=== PATIENT | female | born 1985 | race Caucasian/White ===

== ENCOUNTER 2016-10-15 16:07 | Inpatient (IN) | payer BC, OTHER ==
[~2016-10-15] VITALS: Ht 167.6 cm; Wt 72.0 kg
[~2016-10-15 16:07] MED LIST: BCPILLS PO; IMTUNK
[2016-10-15] MEDS ORDERED: NALOXONE HCL 0.4 MG/1 ML VIAL/CARP IV PRN (16:15)
[2016-10-15] MEDS ORDERED: LORAZEPAM INJ 1 MG in SYRINGE 0 ML IV PRN (16:15)
[2016-10-15] MEDS: BCP'S~ORDER AWAITING ACTION SCH ×2 (16:45→23:41)
--- NOTE | 2016-10-15 16:48 | HISTORY & PHYSICAL EXAMINATION ---
DATE OF ADMISSION: 10/15/2016 HISTORY OF PRESENT ILLNESS: The patient presented to our office a few weeks ago with an acute onset of lower back pain radiating down the right leg. It started when she was working out and setting some weights on the floor. Pain involves the right lower extremity, involving the buttock, lateral thigh, anterior gomez with numbness in her foot. She feels she is dragging her right leg. Standing and sitting reproduce her symptoms. She is most comfortable lying flat with her legs elevated. She went to urgent care where they gave her oral steroids and pain medication. Denies bowel or bladder dysfunction. PAST MEDICAL HISTORY: Significant for migraines, mitral valve prolapse. PAST SURGICAL HISTORY: Significant for breast augmentation and Lasik eye surgery. ALLERGIES: None listed. MEDICATIONS: Include control pills and Imitrex as needed for migraines. FAMILY HISTORY: Significant for hyperlipidemia with her father. SOCIAL HISTORY: She is . Denies alcohol. Denies tobacco. REVIEW OF SYSTEMS: Significant for back pain, right leg pain and weakness. PHYSICAL EXAMINATION: HEENT: Speech appropriate. CARDIOPULMONARY: No gross abnormalities. ABDOMEN: Soft, nontender. GENITOURINARY: Deferred. NEUROLOGIC: Cranial nerves II-XII grossly intact. MUSCULOSKELETAL: She ambulates with an antalgic gait to the right. She is quite uncomfortable. She has a right-sided foot drop. Strength is intact to the left leg. Positive tension sign on the right. 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 PLAN: In light of her continued right-sided radiculopathy and foot drop, we have discussed pursuing directly admitting her for urgent lumbar decompression and fusion L5-S1. Risks, benefits, pros, cons, alternatives outlined in detail. She is in agreement with the above-mentioned plan.
[2016-10-15 19:30] VITALS: BP 121/79; PULSE 78; TEMP 36.8; O2SAT 99
[2016-10-15 19:36] LABS: BASO % 0.2 %; BASO ABS # 0.02 K/uL (0-0.2); COMPLETE YES; EOS % 1.7 %; HEMATOCRIT 37.7 % (37-47); IG% 0.2 %; LYMPH % 34.4 %; LYMPH ABS # 2.76 K/uL (1.2-3.4); MEAN CELL VOLUME 90.6 fL (80-100); MEAN CORPUSCULAR HEMOGLOBIN 31.3 pg (25-34); MEAN CORPUSCULAR HGB CONC 34.5 g/dl (32-36); MEAN PLATELET VOLUME 10.7 fL (7.4-10.4); MONO % 7.6 %; NEUT % 55.9 %; PLATELET COUNT 267 K/uL (130-400); RED BLOOD COUNT 4.16 M/uL (4.2-5.4); WHITE BLOOD COUNT 8.03 K/uL (4.8-10.8)
[2016-10-15 20:08] LABS: ALT/SGPT 21 U/L (12-78); AST/SGOT 15 U/L (15-37); BLOOD UREA NITROGEN 14 mg/dl (7-18); BUN/CREATININE RATIO 19.9 (10-20); CALCIUM 8.7 mg/dl (8.5-10.1); CARBON DIOXIDE 26 mmol/L (21-32); CHLORIDE 105 mmol/L (98-107); CREATININE 0.72 mg/dl (0.60-1.20); GLUCOSE 78 mg/dl (70-99); POTASSIUM 3.9 mmol/L (3.5-5.1); SODIUM 141 mmol/L (136-145)
[2016-10-15 20:11] LABS: ALB/GLOB RATIO 1.3 (0.9-2); ALKALINE PHOSPHATASE 78 U/L (45-117)
[2016-10-15 20:30] LABS: PREG INTERNAL NEGATIVE QC NEG CLEAR BACKGROUND; PREG INTERNAL POSITIVE QC POS CONTROL LINE
[2016-10-15] MEDS: SODIUM CHLORIDE 0.9% 1000ML 1,000 ML IV SCH (20:44)
[2016-10-15 21:57] VITALS: BP 121/79; PULSE 78; TEMP 36.8
[2016-10-15 22:02] VITALS: BP 121/79; PULSE 78; TEMP 36.8; O2SAT 99; Ht 167.6 cm; Wt 72.0 kg
[2016-10-15] MEDS: HYDROmorphone HCL 0.5MG/ML 50 ML CASSETTE IV PRN ×2 (22:43→23:06)
[2016-10-15] MEDS: LACTATED RINGER'S 1000ML 1,000 ML IV SCH (22:50)
[2016-10-15 23:00] VITALS: BP 113/77; PULSE 98; TEMP 36.8; O2SAT 96
[2016-10-16] VITALS (13 sets, daily range): BP systolic 103–132; BP diastolic 62–84; PULSE 73–97; TEMP 36.3–36.7; O2SAT 95–100
[2016-10-16 01:51] LABS: URINE APPEARANCE CLEAR (CLEAR); URINE BILIRUBIN NEG (NEG); URINE COLOR YELLOW; URINE NITRITE NEG (NEG); URINE SPECIFIC GRAVITY 1.011 (1.000-1.030); UROBILINOGEN NEG (NEG)
[2016-10-16 01:54] LABS: MANUAL MICROSCOPIC REQUIRED? NO; REVIEW REQ? NO
[2016-10-16] MEDS: LACTATED RINGER'S 1000ML 1,000 ML IV SCH ×5 (05:38→22:07)
[2016-10-16] MEDS ORDERED: CEFAZOLIN IV 1,000 MG in DEXTROSE 5% 50ML 50 ML IV SCH (06:00)
[2016-10-16] MEDS ORDERED: CEFAZOLIN 1000MG/55 ML D5W IV SCH (06:00)
[2016-10-16] MEDS: HYDROmorphone HCL 0.5MG/ML 50 ML CASSETTE IV PRN ×3 (06:55→22:58)
--- NOTE | 2016-10-16 07:30 | History & Physical Bridge Note ---
H&P Re-Evaluation Bridge Note: I have examined the patient, reviewed the History & Physical and in the interval since the performance of the History & Physical I have noted the following changes of clinical significance: No changes noted
[2016-10-16] MEDS: BCP'S~ORDER AWAITING ACTION SCH ×3 (08:00→23:59)
[2016-10-16] MEDS: ONDANSETRON INJ 2 MG/ML 2 ML VIAL IV PRN ×2 (12:28→18:19)
[2016-10-16] MEDS ORDERED: BACITRACIN 50000 UNIT VIAL ONE (12:36)
[2016-10-16] MEDS ORDERED: BUPIVACAINE/EPINEPHRINE 0.5% MPF 1:200,000 30 ML VIAL ONE (12:36)
[2016-10-16] MEDS ORDERED: FENTANYL CITRATE INJ 50 MCG/1 ML 2 ML VIAL ONE ×3 (13:06→14:53)
[2016-10-16] MEDS ORDERED: MIDAZOLAM HCL 1 MG/ML 2ML VIAL ONE (13:06)
[2016-10-16] MEDS ORDERED: LACTATED RINGER'S 1000ML 1,000 ML IV PRN (13:35)
[2016-10-16] MEDS ORDERED: HYDROmorphone INJ 2 MG/ML SYR/VIAL ONE (13:38)
[2016-10-16] MEDS ORDERED: HYDROmorphone INJ 1 MG/ML SYR IV PRN (13:45)
[2016-10-16] MEDS ORDERED: DiphenhydrAMINE HCL 50 MG/ML VIAL IV PRN (13:45)
[2016-10-16] MEDS ORDERED: ONDANSETRON INJ 2 MG/ML 2 ML VIAL IV PRN ×2 (13:45→15:00)
[2016-10-16] MEDS ORDERED: METOCLOPRAMIDE HCL INJ 5 MG/ML 2 ML VIAL IV PRN ×2 (13:45→15:00)
[2016-10-16] MEDS ORDERED: METOCLOPRAMIDE HCL INJ 5 MG/ML 2 ML VIAL ONE (13:53)
[2016-10-16] MEDS ORDERED: GLYCOPYRROLATE INJ 0.2 MG/ML VIAL ONE (13:53)
[2016-10-16] MEDS ORDERED: DEXAMETHASONE SOD INJ 4 MG/ML VIAL ONE (13:53)
[2016-10-16] MEDS ORDERED: ESMOLOL HCL 10 MG/ML 10 ML VIAL ONE (13:53)
[2016-10-16] MEDS ORDERED: LIDOCAINE HCL 2% 2 ML VIAL (20MG/ML) ONE (13:53)
[2016-10-16] MEDS ORDERED: ONDANSETRON INJ 2 MG/ML 2 ML VIAL ONE (13:53)
[2016-10-16] MEDS ORDERED: RANITIDINE HCL 25 MG/ML INJ ONE (13:53)
[2016-10-16] MEDS ORDERED: NEOSTIGMINE METHYLSULFATE 1 MG/ML 10ML VIAL ONE (13:53)
[2016-10-16] MEDS ORDERED: PROPOFOL IV EMULSION 10 MG/ML 20 ML VIAL IV ONE (13:53)
[2016-10-16] MEDS ORDERED: SODIUM CHLORIDE 0.9% 1000ML 1,000 ML IV SCH (14:57)
--- NOTE | 2016-10-16 14:57 | [facility] Post Operative Brief Note ---
Immediate Operative Summary Operative Date Oct 16, 2016. Pre-Operative Diagnosis Herniated Nucleus Pulposus with neurological decline Post-Operative Diagnosis Same as preoperitive diagnosis Procedure(s) Performed L5-S1 Posterior Spinal decompression and Fusion, Transforaminal Lumbar Interbody Fusion with Instrumentation and application of Fibrinet Surgeon Dr Ware Chocolate Molder Surgeon(s) Alessandra Fontana PA-C Estimated Blood Loss 70 Findings hnp/spondy Specimens None per surgeon
[2016-10-16] MEDS ORDERED: LORAZEPAM INJ 0.5 MG in SYRINGE 0 ML IV PRN (15:00)
[2016-10-16] MEDS ORDERED: DO NOT ADMINISTER FLU VACCINE PRN ×3 (15:00)
[2016-10-16] MEDS ORDERED: DO NOT ADMINISTER PNEUMOCOCCAL VACCINE PRN ×2 (15:00)
[2016-10-16] MEDS ORDERED: PROMETHAZINE HCL INJ 12.5 MG in SODIUM CHLORIDE 0.9% 50ML 50 ML IV PRN (15:00)
[2016-10-16] MEDS ORDERED: HYDROmorphone HCL 0.5MG/ML 50 ML CASSETTE IV PRN (15:00)
[2016-10-16] MEDS ORDERED: FAMOTIDINE 20 MG TAB PO PRN (15:00)
[2016-10-16] MEDS ORDERED: LORAZEPAM 0.5 MG TAB PO PRN (15:00)
[2016-10-16] MEDS ORDERED: SOD PHOSPHATE/SOD BIPHOSPHATE ENEMA 132 ML BTL PR PRN (15:00)
[2016-10-16] MEDS ORDERED: MAGNESIUM HYDROXIDE SUSP 30 ML UDC PO PRN (15:00)
[2016-10-16] MEDS ORDERED: ACETAMINOPHEN IV 100 ML IV PRN (15:00)
[2016-10-16] MEDS ORDERED: NALOXONE HCL 0.4 MG/1 ML VIAL/CARP IV PRN ×2 (15:00)
[2016-10-16] MEDS ORDERED: hydrOXYzine HCL 25 MG TAB PO PRN (15:00)
[2016-10-16] MEDS ORDERED: ACETAMINOPHEN 500 MG TAB PO PRN (15:00)
[2016-10-16] MEDS ORDERED: BISACODYL 10 MG SUPP PR PRN (15:00)
[2016-10-16] MEDS ORDERED: ALUMINUM/MAGNESIUM SUSP 30 ML UDC PO PRN (15:00)
[2016-10-16] MEDS ORDERED: FLOSEAL HEMOSTATIC MATRIX 10ML TOP ONE (15:13)
--- NOTE | 2016-10-16 15:18 | DIAGNOSTIC IMAGING REPORT ---
INTRAOPERATIVE LUMBAR SPINE 2 VIEWS CLINICAL HISTORY: L5-S1 DECOMP/FUSION/INTERBODY COMPARISON STUDY: No previous studies for comparison. FINDINGS: 21 seconds of fluoroscopic time was utilized. There are postsurgical changes of an L5-S1 discectomy and interbody fusion. There is a grade 1 spondylolisthesis of L5 on S1. There is posterior hardware fixation with screws and rods. IMPRESSION: Postsurgical changes of an L5-S1 discectomy and fusion. Electronically signed by: Urbano Saul M.D. 10/16/2016 3:16 PM Dictated Date/Time: 10/16/2016 3:16 PM
--- NOTE | 2016-10-16 15:28 | OPERATIVE REPORT ---
DATE OF OPERATION: 10/15/2016 PREOPERATIVE DIAGNOSES: Spinal stenosis, spondylolisthesis, herniated nucleus pulposus L5-S1. POSTOPERATIVE DIAGNOSIS: Same. PROCEDURE PERFORMED: 1. Lumbar decompression, medial facetectomy and foraminotomy L5-S1. 2. Posterior spinal fusion L5-S1. 3. Placement posterior instrumentation using Orthros rods and screws, L5-S1. 4. Interbody fusion L5-S1. 5. Placement of PEEK cage 12 x 22 mm at L5-S1. 6. Placement of locally harvested morcellized autograft in the posterior gutters. 7. Placement of FiberNet and OsteoStrux in the interbody space and posterior lateral gutters. SURGEON: Dr. Ross Ware. PAY STATION DEPARTMENT MANAGER: Alessandra Fontana PA-C. Due to the complex nature of the procedure, the entire surgery was performed with the assistant chief engineer of Alessandra Fontana PA-C. The electrician's assistant, under direct supervision, was involved in the actual performance of all aspects of the surgical procedure including hemostasis, tissue retraction and incision, instrument management, patient positioning, and wound closure. ANESTHESIA: General. DISPOSITION: The patient awakened and taken to PACU in stable condition. HISTORY OF PATIENT'S PROBLEMS: This is a 31-year-old female who presents with above-mentioned diagnosis. After failing an extensive course of nonoperative care, elected to undergo the above-mentioned procedure. Risks, benefits, pros, cons, and alternatives were outlined in detail preoperatively. OPERATION AND FINDINGS: PROCEDURE: The patient was met with preoperatively, case discussed and all questions were addressed. At that point the patient was taken back to operative suite and after undergoing successful general intubation by the department of anesthesia was placed in prone position on Edwardo table atop Devaughn frame. All bony prominences were well padded and the eyes were inspected to ensure there was no external pressure placed upon them. At this point, lumbar spine was prepped and draped in normal sterile fashion. Sharp dissection with the assistance of Bovie cautery performed down to and exposing the lamina and transverse processes of L5 and the sacral ala bilaterally. Obvious pars defect as well as spina bifida occulta appreciated. A complete laminectomy was performed. I identified a massive disc herniation that migrated cephalad from the L5-S1 level causing significant compression of the L5 nerve root. This was removed in its entirety. Pedicle screws were then placed in L5 and S1 bilaterally levels bilaterally with the assistance of fluoroscopy and appropriate size sanjay provisionally placed. Through a transforaminal approach on the right, a complete discectomy of L5-S1 was performed, endplates curetted to subcortical bleeding bone and a 12 x 22 mm PEEK cage filled with OsteoStrux and FiberNet tapped into position. The rods were then compressed, locked into final position bilaterally and transverse processes of L5 and the sacral ala were burred to subcortical bleeding bone. Remaining OsteoStrux, FiberNet, locally harvested morcellized autograft was placed in the posterior gutters. A 7 flat ARIA drain was inserted. Incision was closed with 1-0 Vicryl in the fascia, 2-0 Vicryl subcutaneously, 4-0 Monocryl for final skin closure. Steri-Strips and sterile dressing was placed. The patient was awakened and taken to PACU in stable condition. I attest to the content of the Intraoperative Record and any orders documented therein. Any exceptio ns are noted below.
[2016-10-16] MEDS: FENTANYL CITRATE INJ 50 MCG/1 ML 2 ML VIAL IV PRN ×2 (15:35→15:40)
--- NOTE | 2016-10-16 16:08 | Anesthesiology Progress Note ---
Anesthesia Post Op Note Date & Time Oct 16, 2016 at 16:09 Vital Signs Pain Intensity: 4 Vital Signs Past 12 Hours Date Time Temp Pulse Resp B/P Pulse Ox O2 Delivery O2 Flow Rate FiO2 10/16/16 16:05 36.9 10/16/16 15:56 87 25 100 10/16/16 15:56 87 25 10/16/16 15:55 120/60 10/16/16 15:51 82 21 10/16/16 15:51 82 21 100 10/16/16 15:50 122/63 10/16/16 15:46 79 14 10/16/16 15:46 79 14 100 10/16/16 15:45 126/66 10/16/16 15:41 69 26 100 10/16/16 15:41 69 26 10/16/16 15:40 75 20 125/75 100 10/16/16 15:40 77 20 10/16/16 15:35 96 17 10/16/16 15:35 96 17 131/69 100 10/16/16 15:30 88 23 129/66 100 10/16/16 15:30 88 23 10/16/16 15:25 85 21 123/65 100 10/16/16 15:25 85 21 10/16/16 15:20 36.8 103 16 127/67 100 Mask 10 10/16/16 15:20 23 10/16/16 15:20 113 23 127/67 10/16/16 12:22 36.7 86 14 122/78 96 Room Air 10/16/16 08:05 36.7 77 16 122/81 100 Room Air 10/16/16 07:30 Room Air Notes Mental Status: alert / awake / arousable, participated in evaluation Pt Amnestic to Procedure: Yes Nausea / Vomiting: adequately controlled Pain: adequately controlled Airway Patency, RR, SpO2: stable & adequate BP & HR: stable & adequate Hydration State: stable & adequate Anesthetic Complications: no major complications apparent
[2016-10-16] MEDS: SODIUM CHLORIDE 0.9% 1000ML 1,000 ML IV SCH (16:30)
[2016-10-16] MEDS: DEXAMETHASONE INJ 6 MG in SYRINGE 0 ML IV SCH ×2 (18:19→23:59)
[2016-10-16] MEDS: CEFAZOLIN IV 1,000 MG in DEXTROSE 5% 50ML 50 ML IV SCH (19:55)
[2016-10-16] MEDS: DOCUSATE SODIUM/SENNA 50/8.6MG TAB PO SCH (22:06)
[2016-10-17 04:01] VITALS: BP 123/76; PULSE 81; TEMP 36.7; O2SAT 96
[2016-10-17] MEDS: LACTATED RINGER'S 1000ML 1,000 ML IV SCH (04:35)
[2016-10-17] MEDS: CEFAZOLIN IV 1,000 MG in DEXTROSE 5% 50ML 50 ML IV SCH (04:35)
[2016-10-17] MEDS ORDERED: DC PCA ONE (06:00)
[2016-10-17] MEDS ORDERED: NURSING VERBAL MED ORDER ONE (06:15)
[2016-10-17 06:57] LABS: BASO % 0.1 %; BASO ABS # 0.01 K/uL (0-0.2); COMPLETE YES; HEMATOCRIT 36.2 % (37-47); IG% 0.3 %; LYMPH % 6.1 %; LYMPH ABS # 0.91 K/uL (1.2-3.4); MEAN CELL VOLUME 92.3 fL (80-100); MEAN CORPUSCULAR HEMOGLOBIN 31.6 pg (25-34); MEAN CORPUSCULAR HGB CONC 34.3 g/dl (32-36); MONO % 6.8 %; NEUT % 86.7 %; PLATELET COUNT 253 K/uL (130-400); RED BLOOD COUNT 3.92 M/uL (4.2-5.4); WHITE BLOOD COUNT 14.81 K/uL (4.8-10.8)
[2016-10-17 07:26] LABS: BUN/CREATININE RATIO 10.2 (10-20); CALCIUM 8.6 mg/dl (8.5-10.1); CREATININE 0.68 mg/dl (0.60-1.20)
[2016-10-17] MEDS ORDERED: RXC5 PO (07:46)
--- NOTE | 2016-10-17 07:47 | Discharge Instructions ---
Discharge Instructions Admission Reason for Admission: Hnp With Neurological Decline Discharge Discharge Diagnosis / Problem: stenosis Discharge Goals Goal(s): Improve function Activity Recommendations Activity Limitations: per Instructions/Follow-up section . Instructions / Follow-Up Instructions / Follow-Up ACTIVITY RECOMMENDATIONS: SELF CARE INSTRUCTIONS AFTER THORACIC/LUMBAR FUSIONS 1. You may walk to your tolerance. It is good exercise for your legs and back. Expect some back and intermittent leg aches and pains. 2. You may perform "counter-top" level activities (make a sandwich, paula with a project, etc.). 3. No bending or lifting of more than 10 pounds or back twisting of any nature (roll like a log when turning in bed). 4. You may ride in a car for 20-30 minutes at a time. No driving until after your first visit with your doctor. 5. Frequent changes of position and restricting sitting to 30 minutes at a time will help limit the amount of back spasms and stiffness you may experience. 6. You may discontinue the use of ambulatory aids (cane, crutches, etc.) once your strength and confidence allow. 7. You may wood milling machine hand the shower and let water strike your incision when you arrive home at least once daily. Do not take a tub bath, sit in a hot tub or go into a swimming pool until after your first recheck in the office. SPECIAL CARE INSTRUCTIONS: VERY IMPORTANT TO READ AND REVIEW A. Your surgical incision has been closed with a cosmetic suture under the skin that will dissolve in about 6 weeks. In 14 days, you can use a pair of clean scissors and cut the suture that is left outside of the skin at the ends of your incision. 1. The small skin tapes can be removed 7 days after surgery if they have not fallen off by that point. 2. You may keep the wound open to air as much as possible to promote healing after post-op day number 5 unless told otherwise by your doctor. 3. If you think the wound looks like it is becoming infected (redness or worsening drainage) and/or you are experiencing fever, chill or worsening back pain and muscle spasms, contact the office so that we may evaluate you as soon as possible. B. Complications are uncommon, but please contact us if you have any signs or symptoms of: 1. wound infection (fever higher than 102.5 degrees F, redness, separation of wound, drainage, or increasing pain from the incision) 2. blood clots in legs (pain, swelling, redness and warmth in legs) 3. urinary tract infection (fever higher than 102.5 degrees F, burning upon urination or increased frequency of urination) 4. nerve problems (inability to walk on your toes or heels, numbness, loss of bowel or bladder control) 5. any other symptoms that concern you C. Please call the office at if you have any concerns or questions about your operation or recovery. D. No smoking! Smoking drastically decreases the chance of a solid fusion. E. Do not take any anti-inflammatory medications (Indocin, Advil, Motrin, Aspirin, Naprosyn, etc.) as these may inhibit the chance of a solid fusion. Tylenol is okay to take for pain. MANAGING PAIN AFTER SPINAL SURGERY 1. Narcotic medication is intended for short-term use and will be provided for surgical pain. Surgical pain usually lasts for a period of 4-6 weeks. Narcotic medication includes Percocet, Vicodin, Darvocet, Tylenol #3 or Lortab. 2. Longer-term pain is more appropriately treated with non-narcotic medication such as Tylenol ES. 3. Muscle spasm is not appropriately treated with narcotics. Muscle relaxers such as Soma, Flexeril or Skelaxin can be used along with Tylenol ES. 4. Remember that we all live with some "aches and pains". This is not unusual or uncommon after an injury or as we get older. a. Back pain is expected and may include muscle spasms for 4 to 6 weeks after surgery. The pain should gradually improve. If the pain worsens for no apparent reason, please contact the office. b. Intermittent leg pain may also be experienced and should not be concerned about unless it worsens for no apparent reason. If so, please contact the office. 5. We will provide appropriate medication within the normal guidelines of their prescribed use. We will also be very cautious and aware of potential abuse and extended duration of patients' medication needs. a. Pain medications are for your comfort and to assist with sleep and rest so that the tissue can heal. They are not provided in order to return to normal activity and should not be used through the day. To do so or worsening pain at night can result from ongoing tissue damage and development of tolerance to the prescribed medicine. 6. Please allow 2-3 days to process refills. Prescriptions will not be mailed but must be picked up at the office. FOLLOW UP VISIT: Keep your scheduled follow-up appointment. Any questions, please call the office at . Current Hospital Diet Patient's current hospital diet: Regular Diet Discharge Diet Recommended Diet: Regular Diet Procedures Procedures Performed: Transforaminal lumbar interbody fusion L5 - S1 Pending Studies Studies pending at discharge: no Medical Emergencies . Who to Call and When: Medical Emergencies: If at any time you feel your situation is an emergency, please call 911 immediately. . Non-Emergent Contact Non-Emergency issues call your: Primary Care Provider . "Provider Documentation" section prepared by Ross Ware. VTE Core Measure Inpt VTE Proph given/why not?: Thelma Poole, SCD's
[2016-10-17] MEDS: OXYCODONE HCL IR 5 MG TAB (IMMEDIATE RELEASE) PO PRN ×3 (07:51→20:05)
[2016-10-17] MEDS: DEXAMETHASONE INJ 6 MG in SYRINGE 0 ML IV SCH (07:52)
[2016-10-17] MEDS: BCP'S~ORDER AWAITING ACTION SCH ×3 (08:00→23:19)
[2016-10-17 08:21] VITALS: BP 121/78; PULSE 87; TEMP 36.7; O2SAT 100
[2016-10-17] MEDS: HYDROmorphone INJ 0.5 MG/0.5 ML SYR IV PRN ×3 (08:58→21:52)
[2016-10-17 15:13] VITALS: BP 122/76; PULSE 79; TEMP 37.3; O2SAT 99
--- NOTE | 2016-10-17 17:13 | PROGRESS NOTE ---
DATE: 10/17/2016 HISTORY OF PRESENT ILLNESS: Postop day 1. Back pain controlled. Leg pain improved. Vital signs stable. Temperature 37.3. ARIA drained 110 mL. Hematocrit this a.m. 36.2. PHYSICAL EXAMINATION: The patient is ambulating halls. She has good and rather improved strength to right lower extremity in dorsiflexion. ASSESSMENT: Status post lumbar decompression and fusion. PLAN: At this time, we will continue physical therapy, monitor ARIA output, and anticipate home tomorrow or the next day.
[2016-10-17] MEDS: DOCUSATE SODIUM/SENNA 50/8.6MG TAB PO SCH (21:50)
[2016-10-17 23:19] VITALS: BP 124/75; PULSE 66; TEMP 36.6; O2SAT 96
[2016-10-18] MEDS: HYDROmorphone INJ 0.5 MG/0.5 ML SYR IV PRN ×2 (03:25→08:05)
[2016-10-18] MEDS: POLYETHYLENE (MIRALAX) 17 GM PACK PO SCH ×2 (05:31→12:02)
[2016-10-18 07:00] VITALS: BP 117/79; PULSE 91; TEMP 36.7; O2SAT 99
[2016-10-18] MEDS: BCP'S~ORDER AWAITING ACTION SCH (08:00)
[2016-10-18] MEDS ORDERED: KETOROLAC TROMETHAMINE 30 MG/ML VIAL IV STA (10:43)
[2016-10-18] MEDS ORDERED: KETOROLAC TROMETHAMINE 30 MG/ML VIAL IV PRN (10:45)
--- NOTE | 2016-10-18 11:22 | DISCHARGE SUMMARY ---
PRINCIPAL DIAGNOSES: Herniated nucleus pulposus, spinal stenosis, spondylolisthesis L5-S1. HOSPITAL COURSE FOLLOWS: On October 15, the patient was admitted for pain control and on October 16, underwent lumbar decompression and fusion L5-S1 tolerated this well and taken to the orthopedic floor postoperatively. Postop day #1, strength is improving. Leg pain improved. Postop day #2. Continued to do well. ARIA drain decreased appropriately. Subsequently discharged home. Discharge orders and instructions found on the chart for further review.
[2016-10-18 12:54] VITALS: BP 124/75; PULSE 66; TEMP 36.6; O2SAT 96
== END 2016-10-18 15:00 | disposition home or self-care (01) | DRG 460 ==
LOC: C.MSW 18:42
PROVIDERS: ADMIT Orthopaedic Surgery Orthopaedic Surgery of the Spine; ATTEND Orthopaedic Surgery Orthopaedic Surgery of the Spine
PROC: 0SG3071 Fusion of Lumbosacral Joint with Autologous Tissue Substitute, Posterior Approach, Posterior Column, Open Approach (ICD-10-PCS; principal; 2016-10-15)
PROC: 3E0U0GB Introduction of Recombinant Bone Morphogenetic Protein into Joints, Open Approach (ICD-10-PCS; principal; 2016-10-15)
PROC: 0ST40ZZ Resection of Lumbosacral Disc, Open Approach (ICD-10-PCS; principal; 2016-10-15)
PROC: 0SG30AJ Fusion of Lumbosacral Joint with Interbody Fusion Device, Posterior Approach, Anterior Column, Open Approach (ICD-10-PCS; principal; 2016-10-15)
DX: M51.17 Intervertebral disc disorders with radiculopathy, lumbosacral region (principal); M43.17 Spondylolisthesis, lumbosacral region; M51.86 Other intervertebral disc disorders, lumbar region; M21.371 Foot drop, right foot; I34.1 Nonrheumatic mitral (valve) prolapse; G43.909 Migraine, unspecified, not intractable, without status migrainosus; Z79.3 Long term (current) use of hormonal contraceptives; Z79.899 Other long term (current) drug therapy

== ENCOUNTER → 2017-01-10 | Outpatient (CLI) | payer BC ==
[~2017-01-10] MED LIST changes: +RXC5 PO
[2017-01-10 15:02] LABS: URINE APPEARANCE CLEAR (CLEAR); URINE BILIRUBIN NEG (NEG); URINE COLOR YELLOW; URINE NITRITE NEG (NEG); URINE SPECIFIC GRAVITY 1.009 (1.000-1.030); UROBILINOGEN NEG (NEG)
[2017-01-10 15:09] LABS: MANUAL MICROSCOPIC REQUIRED? NO; REVIEW REQ? NO
== END | disposition home or self-care (01) ==
LOC: C.LABSPEC 13:29
PROVIDERS: ATTEND Obstetrics & Gynecology
DX: Z34.90 Encounter for supervision of normal pregnancy, unspecified, unspecified trimester (principal)

== ENCOUNTER → 2017-01-17 | Outpatient (CLI) | payer BC ==
[2017-01-17 10:10] LABS: BASO % 0.2 %; BASO ABS # 0.01 K/uL (0-0.2); COMPLETE YES; EOS % 1.1 %; HEMATOCRIT 37.9 % (37-47); IG% 0.3 %; LYMPH % 27.7 %; LYMPH ABS # 1.81 K/uL (1.2-3.4); MEAN CELL VOLUME 93.1 fL (80-100); MEAN CORPUSCULAR HEMOGLOBIN 31.7 pg (25-34); MEAN PLATELET VOLUME 11.2 fL (7.4-10.4); MONO % 10.2 %; NEUT % 60.5 %; PLATELET COUNT 244 K/uL (130-400); RED BLOOD COUNT 4.07 M/uL (4.2-5.4); WHITE BLOOD COUNT 6.54 K/uL (4.8-10.8)
[2017-01-20 08:29] LABS: CHLAMYDIA TRACH RNA*** NOT DETECTED (NOT DETECTED); GC (NEIS GONORRHOEAE)RNA** NOT DETECTED (NOT DETECTED)
== END | disposition home or self-care (01) ==
LOC: C.LAB1850 09:03
PROVIDERS: ATTEND Obstetrics & Gynecology
DX: Z34.90 Encounter for supervision of normal pregnancy, unspecified, unspecified trimester (principal)

== ENCOUNTER → 2017-03-28 | Outpatient (CLI) | payer BC ==
[2017-04-02 14:12] LABS: AFP CONCENTRATION 48.5 NG/ML; AFP MULTIPLE OF MEDIAN 1.28; AFPTS GESTATIONAL AGE 18.1 WEEKS; AFPTS INSULIN DEP DIABETIC? YES; AFPTS MATERNAL WT 158 LBS; ALPHA-FETOPROTEIN RACE CAUCASIAN=W; HISTORY OF NTD NO; REPEAT SAMPLE? NO
== END | disposition home or self-care (01) ==
LOC: C.LAB1850 12:00
PROVIDERS: ATTEND Obstetrics & Gynecology
DX: Z34.02 Encounter for supervision of normal first pregnancy, second trimester (principal)

== ENCOUNTER → 2017-06-09 | Outpatient (CLI) | payer BC ==
[2017-06-09 13:05] LABS: HEMATOCRIT 34.4 % (37-47)
[2017-06-09 14:26] LABS: URINE APPEARANCE CLEAR (CLEAR); URINE BILIRUBIN NEG (NEG); URINE COLOR YELLOW; URINE EPITHELIAL CELL AUTO 20-30 /lpf (0-5); URINE NITRITE NEG (NEG); URINE PH 6.5 (4.5-7.5); URINE SPECIFIC GRAVITY 1.015 (1.000-1.030); UROBILINOGEN NEG (NEG)
[2017-06-09 14:27] LABS: MANUAL MICROSCOPIC REQUIRED? NO; REVIEW REQ? NO
== END | disposition home or self-care (01) ==
LOC: C.LAB1850 12:13
PROVIDERS: ATTEND Obstetrics & Gynecology
DX: Z34.02 Encounter for supervision of normal first pregnancy, second trimester (principal)

== ENCOUNTER → 2017-08-08 | Outpatient (CLI) | payer BC | END | disposition home or self-care (01) | LOC: C.LABSPEC 10:59 | PROVIDERS: ATTEND Obstetrics & Gynecology | DX: Z34.03 Encounter for supervision of normal first pregnancy, third trimester (principal) ==

== ENCOUNTER 2017-08-31 00:51 | Inpatient (IN) | payer BC, OTHER ==
[~2017-08-31] VITALS: Ht 167.6 cm; Wt 77.1 kg
[2017-08-31 01:10] VITALS: Ht 167.6 cm; Wt 77.1 kg
[2017-08-31] MEDS ORDERED: CETI10TA84 PO (01:10)
[2017-08-31] MEDS ORDERED: PRENTAB26 PO (01:10)
[2017-08-31] MEDS ORDERED: BUTA1CAP20 (01:10)
[2017-08-31] MEDS ORDERED: BUPIVACAINE 0.25% 30 ML VIAL ONE (01:23)
[2017-08-31] MEDS ORDERED: EpHEDrine SULFATE INJ 50 MG/ML AMP ONE (01:23)
[2017-08-31] MEDS ORDERED: FENTANYL 2MCG/ML ROPIV 1.25MG/ML 100ML BAG EPI ONE (01:24)
[2017-08-31] MEDS ORDERED: FENTANYL CITRATE INJ 50 MCG/1 ML 2 ML VIAL ONE (01:24)
[2017-08-31] MEDS ORDERED: PENICILLIN G POTASSIUM IV 3 MU in DEXTROSE 5% 100ML 100 ML IV PRN (01:30)
[2017-08-31] MEDS ORDERED: PENICILLIN G POTASSIUM IV 6 MU in DEXTROSE 5% 250ML 250 ML IV ONE (01:30)
[2017-08-31 01:39] LABS: HEMATOCRIT 36.3 % (37-47); HEMOGLOBIN 12.5 g/dL (12.0-16.0); MEAN CELL VOLUME 89.9 fL (80-100); MEAN CORPUSCULAR HEMOGLOBIN 30.9 pg (25-34); MEAN CORPUSCULAR HGB CONC 34.4 g/dl (32-36); MEAN PLATELET VOLUME 10.6 fL (7.4-10.4); PLATELET COUNT 216 K/uL (130-400); RED CELL DISTRIBUTION WIDTH CV 13.7 % (11.5-14.5); RED CELL DISTRIBUTION WIDTH SD 44.8 fL (36.4-46.3); WHITE BLOOD COUNT 13.71 K/uL (4.8-10.8)
[2017-08-31] MEDS: LACTATED RINGER'S 1000ML 1,000 ML IV PRN ×2 (01:53→02:23)
[2017-08-31] MEDS: LACTATED RINGER'S 1000ML 1,000 ML IV SCH ×2 (01:53→06:11)
[2017-08-31] MEDS ORDERED: LACTATED RINGER'S 1000ML 500 ML IV PRN (02:57)
[2017-08-31] MEDS ORDERED: NALOXONE HCL INJ 1 MG in SODIUM CHLORIDE 0.9% 1000ML 1,000 ML IV PRN (02:57)
[2017-08-31] MEDS ORDERED: ONDANSETRON INJ 2 MG/ML 2 ML VIAL IV PRN (03:00)
[2017-08-31] MEDS ORDERED: EpHEDrine SULFATE INJ 50 MG/ML AMP IV PRN (03:00)
[2017-08-31] MEDS ORDERED: NALOXONE HCL INJ 0.4 MG/1 ML VIAL/CARP IV PRN (03:00)
[2017-08-31] MEDS ORDERED: NALBUPHINE HCL INJ 10 MG/ML AMP IV PRN (03:00)
[2017-08-31] MEDS ORDERED: FENTANYL 2MCG/ML ROPIV 1.25MG/ML 100ML BAG EPI PRN (03:00)
[2017-08-31] MEDS ORDERED: DiphenhydrAMINE HCL 50 MG/ML VIAL IV PRN (03:00)
[2017-08-31] MEDS ORDERED: OXYTOCIN 30 UNITS/500ML NSS IV ONE (06:32)
[2017-08-31] MEDS ORDERED: SUPERCREAM 0.870 % 15GM JAR EXT PRN (08:15)
[2017-08-31] MEDS ORDERED: LANOLIN OINT EXT PRN (08:15)
[2017-08-31] MEDS ORDERED: OXYTOCIN 30 UNITS/500ML NSS IV PRN (08:15)
[2017-08-31] MEDS ORDERED: ACETAMINOPHEN 325 MG TAB PO PRN (08:15)
[2017-08-31] MEDS ORDERED: OXYCODONE/ACETAMINOPHEN 5-325 TAB PO PRN (08:15)
[2017-08-31] MEDS ORDERED: BENZOCAINE 20% AER SPR 82.5 GM CAN EXT PRN (08:15)
[2017-08-31] MEDS: IBUPROFEN 600 MG TAB PO PRN ×3 (09:41→22:38)
--- NOTE | 2017-08-31 10:01 | Anesthesia Procedure Note ---
Anesthesia Epidural Removal Nt Date & Time Aug 31, 2017 at 10:00 Vital Signs Pain Intensity: 3.0 Notes Mental Status: alert / awake / arousable, participated in evaluation Nausea / Vomiting: adequately controlled Pain: adequately controlled Airway Patency, RR, SpO2: stable & adequate BP & HR: stable & adequate Hydration State: stable & adequate Neuraxial Anesthesia: was administered, sensory block is resolving Anesthetic Complications: no major complications apparent, pt satisfied with anesthetic care Epidural: removed without complications, with tip intact
--- NOTE | 2017-08-31 11:02 | DELIVERY SUMMARY ---
DATE OF OPERATION: 08/31/2017 The patient is a 32-year-old 1, para 0 white female, EDC of 08/27/2017, who presented in active labor. She presented at 5 cm dilated with membranes intact. GBS is positive. She received 2 doses of penicillin prior to delivery. She received effective epidural analgesia. She ruptured membranes spontaneously after 8 cm dilated and then, pushed effectively over an intact perineum for delivery of a viable male infant. Mouth and nasopharynx were suctioned on the perineum. The rest of the was delivered easily and placed on mother's abdomen for further attention and stimulation. Bilateral first-degree labial lacerations were repaired with 3-0 chromic in the usual fashion. Estimated blood loss was 500 mL. Post- bleeding was controlled with dilute Pitocin and fundal massage. Mother and infant were doing well after delivery. I attest to the content of the Intraoperative Record and any orders documented therein. Any exception s are noted below.
[2017-08-31 12:00] VITALS: BP 107/72; PULSE 111; TEMP 36.7
[2017-08-31 15:25] VITALS: BP 100/65; PULSE 88; TEMP 36.4; O2SAT 97
[2017-08-31] MEDS: DOCUSATE SODIUM 100 MG CAP PO SCH (20:01)
[2017-08-31 20:05] VITALS: BP 104/72; PULSE 84; TEMP 36.6; O2SAT 97
[2017-08-31 23:15] VITALS: BP 110/71; PULSE 79; TEMP 36.5; O2SAT 99
[2017-09-01 03:55] VITALS: BP 106/68; PULSE 71; TEMP 36.7; O2SAT 98
--- NOTE | 2017-09-01 07:22 | Progress Note ---
Subjective Sep 01, 2017. Subjective conversation w/ patient, physical exam Ambulation: ambulating normally Voiding: no voiding problems Passing Gas: Yes Lochia: Small Feeding Type: Breast Feeding Review of Systems Constitutional: No fever, No chills, No sweats, No weight loss, No weakness, No fatigue, No problem reported Breast: No see HPI, No breast lump, No change in shape, No nipple discharge, No breast pain, No problem reported Female : No see HPI, No dysuria, No urinary frequency, No hematuria, No incontinence, No abnormal vaginal bleeding, No vaginal discharge, No problem reported Objective Vital Signs Date Time Temp Pulse Resp B/P (MAP) Pulse Ox O2 Delivery O2 Flow Rate FiO2 09/01/17 03:55 36.7 71 106/68 (81) 98 Room Air 08/31/17 23:15 99 Room Air 08/31/17 23:15 36.5 79 110/71 (84) 99 Room Air 08/31/17 20:05 36.6 84 18 104/72 (83) 97 Room Air 08/31/17 15:25 36.4 88 18 100/65 (77) 97 Room Air 08/31/17 15:25 97 Room Air 08/31/17 12:00 Room Air 08/31/17 12:00 36.7 111 20 107/72 (84) Room Air Physical Exam General Appearance: WELL-APPEARING, NO APPARENT DISTRESS Abdomen: non tender, soft Fundus: Firm, Non-Tender, Relation to Umbilicus (1 below U) Extremities: no calf tenderness Laboratory Results Last 24 Hours Test 09/01/17 04:44 Assessment and Plan Day#: 1 Continue Routine Care: stable course GBS(+) continue current care plan
[2017-09-01 07:58] VITALS: BP 109/74; PULSE 77; TEMP 36.7
[2017-09-01 07:59] LABS: HEMATOCRIT 32.1 % (37-47); HEMOGLOBIN 10.7 g/dL (12.0-16.0)
[2017-09-01] MEDS: DOCUSATE SODIUM 100 MG CAP PO SCH ×2 (08:15→20:17)
[2017-09-01] MEDS: PRENATAL VITAMIN TAB PO SCH (08:16)
[2017-09-01] MEDS: IBUPROFEN 600 MG TAB PO PRN ×2 (08:16→16:21)
[2017-09-01 16:25] VITALS: BP 109/72; PULSE 73; TEMP 36.7
[2017-09-01] MEDS ORDERED: BISACODYL 5 MG TABEC PO SCH (20:00)
[2017-09-02 00:30] VITALS: BP 115/76; PULSE 71; TEMP 36.5
[2017-09-02] MEDS: IBUPROFEN 600 MG TAB PO PRN ×3 (00:35→12:04)
[2017-09-02] MEDS: PRENATAL VITAMIN TAB PO SCH (07:46)
[2017-09-02] MEDS: DOCUSATE SODIUM 100 MG CAP PO SCH (07:46)
[2017-09-02 08:30] VITALS: BP 120/79; PULSE 72; TEMP 36.6; O2SAT 98; O2SAT 99
--- NOTE | 2017-09-02 08:40 | Progress Note ---
Subjective Sep 02, 2017. Subjective conversation w/ patient, physical exam Ambulation: ambulating normally Voiding: no voiding problems Passing Gas: Yes Diet Tolerance: Regular Diet Lochia: Moderate Feeding Type: Breast Feeding Pain: controlled Review of Systems Constitutional: No problem reported Respiratory: No problem reported Cardiac: No problem reported Breast: No problem reported Abdomen: No problem reported Female : No problem reported Objective Vital Signs Date Time Temp Pulse Resp B/P (MAP) Pulse Ox O2 Delivery O2 Flow Rate FiO2 09/02/17 00:30 Room Air 09/02/17 00:30 36.5 71 20 115/76 (89) Room Air 09/01/17 16:25 36.7 73 18 109/72 (84) Room Air 09/01/17 16:25 Room Air Physical Exam General Appearance: WELL-APPEARING, NO APPARENT DISTRESS Respiratory/Chest: no respiratory distress Cardiovascular: regular rate, rhythm Abdomen: non tender, soft Fundus: Firm Extremities: normal inspection Assessment and Plan Post- Day#: 2 Continue Routine Care: PPD#2 doing well, discharge to home today. Discharge instructions reviewed. RTO 6w.
--- NOTE | 2017-09-02 08:43 | Discharge Instructions ---
Discharge Instructions Date of Service Sep 02, 2017. Admission Reason for Admission: LABOR Discharge Discharge Diagnosis / Problem: vaginal delivery Discharge Goals Goal(s): Routine recovery after delivery Activity Recommendations Activity Limitations: per Instructions/Follow-up section . Instructions / Follow-Up Instructions / Follow-Up ACTIVITY RECOMMENDATIONS: * Gradual return to full activity over the next 2-3 weeks. * No lifting - nothing heavier than baby over the next 2-3 weeks. * Do not engage in vigorous exercise, sexual activity or sports until cleared by your physician. * Do not drive or operate any motorized equipment until cleared by your physician. * You may shower/bathe daily. MEDICATIONS: For discomfort or pain, you may use Acetaminophen (Tylenol), Ibuprofen (Advil), or Naproxen (Aleve) following the package directions. For constipation you may use Colace following the package directions. BREAST CARE: If you are not breast feeding: * Wear a supportive bra 24 hours a day for one to two weeks. * Avoid stimulating your breasts and nipples as much as possible during the first few weeks after delivery. * When taking a shower, have the warm water hit your back, not breasts. * When your breasts feel full, apply ice packs. Usually three to four times a day helps ease the discomfort. * Take a mild pain medication (Tylenol / Motrin) when you are uncomfortable. If breast feeding: * Use breast milk to lubricate nipples. Lansinoh cream may be used for sore nipples. You do not need to remove cream prior to breast feeding. If using a different brand of cream, check the label for directions regarding removal of cream prior to nursing. * Wear a supportive bra. * If having problems with breasts or breast feeding, call a qm consultant or your health care provider. EPISIOTOMY CARE: After delivery, if you have an episiotomy (stitches), the following steps will ease discomfort and aid healing. * For the first 24 hours after delivery, place ice packs next to your episiotomy to help reduce swelling. * After the first 24 hour-period, sitz baths, either portable or in the tub, are suggested. A shower with a shower arm sprayed over the episiotomy may be comforting. * Nita care should be done after each voiding and bowel movement. Squirt warm water from a plastic bottle over the perineum (region of the body between the anus and urinary opening) and pat dry. * Use Dermoplast to ease discomfort. Shake container. [place] directly over the episiotomy. Place a Tucks on a clean sanitary pad next to your episiotomy. SPECIAL CARE INSTRUCTIONS: When you are discharged from the hospital, it is important for you to follow the instructions listed below: * During the first week at home, you should be able to care for yourself and your baby. In addition, the usual light household activities are encouraged. * Limit your activities to the way you feel. Do not try to clean the house or move furniture. Be sensible. * If you actively engage in sports and have done so up until the time of your delivery, you may resume these activities as soon as you feel able. This may take up to one month or even longer. Use good judgment. * Continue to take your vitamins for at least six weeks after the of your baby. * Your diet need not be limited unless you were on a special diet before your delivery. Breast-feeding mothers need around 2500 calories per day and at least 64-80 ounces of fluid per day (8 to 10 glasses). * You should eat foods from the four major food groups. Crash diets or fad diets are to be avoided. Eating lean meats, fresh fruits and vegetables, low-fat dairy products, high fiber foods and a regular exercise program, will help you get back to your pre- weight without putting your health at risk. * Constipation is sometimes a problem after delivery. Take a mild laxative as needed. If breast feeding, Milk of Magnesia is acceptable to use. You may use a suppository or Fleets enema if no episiotomy. * A daily shower or tub bath is suggested. Be sure to thoroughly and gently dry the perineum. * A bloody vaginal discharge will usually continue until around four weeks post . A small amount of bleeding may continue for as long as six weeks. Vaginal discharge changes from the bright red bleeding after delivery to pink then brownish and finally yellowish-pink before becoming white and disappearing. * Bleeding may increase with activity. Your first period may come in 4-8 weeks. If you are breast feeding, your period may be delayed even longer. * [place] (sex) can begin whenever both you and your partner feel comfortable and do not have any form of genital infection. It is recommended that you wait at least six weeks for internal and external healing to occur. If you have questions, please talk to your health care practitioner. A condom should be used to prevent infection and . * Foreplay, gentle intercourse and lubrication is very important the first several times to prevent pain. A water-based lubricant such as K-Y jelly or Astroglide may be used. * If you have RH negative blood and your baby is RH positive, you will receive RHOGAM by injection prior to discharge. The nurse will give you a card to keep with you that has the date and place that you received RHOGAM after delivery. * During your care, you had a Rubella screen done to check for the presence of rubella antibodies in your blood. If your test was negative, you will receive a Rubella vaccine prior to discharge. This vaccine may cause a fever, soreness at the injection site and flu-like symptoms. If these symptoms persist, notify your health care practitioner. is not advised for one month after a Rubella vaccine. * Verbalizes understanding of car seat law as reviewed with patient nursing. * Car Seat hand-out given and reviewed with patient by nursing. * Shaken baby information reviewed with patient by nursing. Call you doctor if: * Heavy bleeding (saturating several pads an hour) or passing clots the size of your fist. * A fever >101 degrees F (38.3 degrees C) on two occasions four hours apart and /or chills. * Unusual pain in the pelvic or vaginal areas. * "Baby Blues" lasting longer than two weeks. If you have any questions or concerns, call your health care practitioner at . FOLLOW UP VISIT: * Please call the office at to schedule a 6 week examination. It is important you keep this appointment. It is important for you to make arrangements for either yearly or twice yearly check-ups thereafter. Current Hospital Diet Patient's current hospital diet: Regular OB Diet Discharge Diet Recommended Diet: Regular OB Diet Pending Studies Studies pending at discharge: no Medical Emergencies . Who to Call and When: Medical Emergencies: If at any time you feel your situation is an emergency, please call 911 immediately. . Non-Emergent Contact Non-Emergency issues call your: Primary Care Provider, Associate Professor Of Kinesiology . . "Provider Documentation" section prepared by Kyleigh Souza. . VTE Core Measure Inpt VTE Proph given/why not?: Treatment not indicated
[2017-09-02 15:34] VITALS: BP_DIAS 79; PULSE 72; TEMP 36.6
== END 2017-09-02 16:00 | disposition home or self-care (01) | DRG 775 ==
LOC: C.OPB 00:51 → C.LD 00:51 → C.OPB 01:18 → C.LD 01:18 → C.OBG 14:38
PROVIDERS: ADMIT Obstetrics & Gynecology; ATTEND Obstetrics & Gynecology
PROC: 0UQMXZZ Repair Vulva, External Approach (ICD-10-PCS; principal; 2017-08-31)
PROC: 10E0XZZ Delivery of Products of Conception, External Approach (ICD-10-PCS; principal; 2017-08-31)
DX: O24.420 Gestational diabetes mellitus in childbirth, diet controlled (principal); O70.0 First degree perineal laceration during delivery; O99.824 Streptococcus B carrier state complicating childbirth; Z37.0 Single live birth; Z3A.40 40 weeks gestation of pregnancy

== ENCOUNTER → 2017-10-15 | Outpatient (CLI) | payer OTHER ==
[~2017-10-15] MED LIST changes: -BCPILLS PO; +BUTA1CAP20; +CETI10TA84 PO; -IMTUNK; +PRENTAB26 PO; -RXC5 PO
== END | disposition home or self-care (01) ==
LOC: C.PAPS 08:26
PROVIDERS: ATTEND Obstetrics & Gynecology
DX: O24.410 Gestational diabetes mellitus in pregnancy, diet controlled (principal); Z30.09 Encounter for other general counseling and advice on contraception

== ENCOUNTER → 2017-10-18 | Outpatient (CLI) | payer OTHER | END | disposition home or self-care (01) | LOC: C.LAB1850 08:27 | PROVIDERS: ATTEND Obstetrics & Gynecology | DX: Z01.419 Encounter for gynecological examination (general) (routine) without abnormal findings (principal) ==

== ENCOUNTER 2021-11-06 04:59 | Inpatient (IN) ==
[2021-11-06] MEDS ORDERED: LIDOCAINE 1% LOCAL 20 ML VIAL ONE (05:22)
[2021-11-06] MEDS ORDERED: OXYTOCIN 30 UNITS/500 ML BAG IV PRN ×2 (05:36→06:06)
--- NOTE | 2021-11-06 05:36 | History & Physical Report ---
Date of Service November 06, 2021 Assessment & Plan (1) Active labor at term: Plan: admit, iv, anticip . History of Present Illness Chief Complaint: contractions Primary Care Provider: Pat Hdz MD 36yo at 38+wks diego presents to L&D with above cc. On arrival, 8cm per nurses. ? rom. PNC c/b ama All Active Problems (Updated 07/09/21 @ 09:21 by Kyleigh Souza, DO) Echogenic focus of heart of fetus affecting antepartum care of mother Lumbar stenosis with neurogenic claudication (Chronic) Depression with anxiety Common migraine without aura Hypothyroidism Elderly multigravida PNL rh pos, ri, gbs neg OBH: x 1 GYNH: nl paps, no stds Allergies Allergy/AdvReac Type Severity Reaction Status Date / Time mold Allergy Unknown SOB, COUGH Verified 11/02/21 15:24 sumatriptan [From Imitrex] AdvReac Mild Rash Verified 11/02/21 15:24 Home Medications Medication Instructions Recorded Confirmed Type prenat.vits,abelino,kro-dboa-rkpsz 1 tab PO DAILY 03/30/21 11/02/21 History finomynaax-kvtqczisfmmhw-hrnjxvag 1 cap PO Q6H PRN #30 cap 04/17/21 11/02/21 Rx 50 mg-300 mg-40 mg capsule (Fioricet) Collagen PO DAILY 05/07/21 11/02/21 History coenzyme Q10 [Co Q-10] 200 ea PO DAILY 05/07/21 11/02/21 History magnesium 300 ea PO DAILY 05/07/21 11/02/21 History Patient History Medical History (Updated 11/06/21 @ 05:36 by Madiha Hand MD, FACOG) Chronic sinusitis Common migraine without aura Depression with anxiety History of chicken pox Hypothyroidism Insulin resistance Polycystic ovarian syndrome Surgical History H/O oral surgery Hx of breast surgery S/P lumbar spinal fusion Family History Grandfather (Maternal) Myocardial infarction Grandfather (Paternal) Myocardial infarction Aunt Breast cancer Family/Other No problems noted. Father Hypercholesteremia Hypertension Sister Thyroid disease Denies family history of Colon cancer Ovarian cancer Prostate cancer Social History (Updated 03/30/21 @ 15:13 by Marilyn Felix) Smoking Status: Never smoker Second Hand Exposure: No; Hx Alcohol Use: Yes Alcohol type: wine Alcohol Intake Frequency: Monthly or Less Hx Substance Use: No Preferred Language: Kyrgyz Communication Ability: Effective Visual Impairment: No Limitations Hearing Ability: Normal marital status: marital status details: Burt Wiggins (34) [phone] Current Living Situation: Spouse and Family Current Living Situation Comment: lives with spouse, son, dogs current occupational status: employed current occupation: [employer] Feels Safe at Home: Yes Childhood Exposure to Second-Hand Smoke: No Dental Care, Regularly: Yes Physical Activity Frequency: 1-2 Times per Week Seatbelt Use: always Sunscreen Use: Yes Review of Systems as per Subjective / HPI Physical Exam Constitutional: no vitals Genitourinary: Manual OB Exam: + cervical dilation 10 cm, + cervical effacement 100% and + station + 1 Coding Level of Care Code None Diagnoses Active labor at term
--- NOTE | 2021-11-06 05:41 | Delivery Summary ---
Vaginal Delivery Summary Date of Service November 06, 2021 Vaginal Delivery Summary The patient dilated to complete and pushed to deliver a viable male Apgars 8 and 8 via over intact perineum. Nuchal x 1 loose, delivered through. Mouth and nose bulb suctioned at perineum. Shoulders and body delivered with ease. was vigorous and crying at . Cord clamped at 30 seconds of life and to maternal abdomen where the cord was then doubly clamped and cut. Placenta delivered spontaneously and intact, three-vessel cord. Hemostasis achieved with dilute pitocin and uterine massage. Left labial laceration reapproximated with interrupted sutures of 4-0 vicryl after 1%local lidocaine injection. Cervix and sulci intact. EBL 300 cc. Mother and baby stable in recovery. [facility] Vaginal Delivery Charge Delivery Type Details:
[2021-11-06] MEDS ORDERED: OXYTOCIN 20 UNITS in LACTATED RINGER'S 1,000 ML IV SCH (06:06)
[2021-11-06] MEDS ORDERED: BENZOCAINE 20% AER SPR 82.5 GM CAN EXT PRN (06:06)
[2021-11-06] MEDS ORDERED: oxyCODONE/ACETAMINOPHEN 5mg/325mg TAB PO PRN (06:06)
[2021-11-06] MEDS ORDERED: HYDROCORTISONE ACETATE 25 MG SUPP PR PRN (06:06)
[2021-11-06] MEDS ORDERED: ACETAMINOPHEN 325 MG TAB PO PRN (06:06)
[2021-11-06] MEDS ORDERED: DIPHTHERIA/TETANUS/PERTUSSIS 0.5 ML SYR/VIAL IM ONE (06:06)
[2021-11-06] MEDS: IBUPROFEN 600 MG TAB PO PRN ×3 (06:23→23:12)
[2021-11-06 06:33] LABS: Hematocrit (blood only) 39.2 % (37-47); Hemoglobin 13.6 g/dL (12.0-16.0); Mean Corpuscular Hemoglobin 32.1 pg (25-34); Mean Corpuscular Hgb Conc 34.7 g/dL (32-36); Mean Corpuscular Volume 92.5 fL (80-100); Mean Platelet Volume 10.7 fL (7.4-10.4); Platelet Count 214 K/uL (130-400); RDW Coefficient of Variation 12.3 % (11.5-14.5); RDW Standard Deviation 41.6 fL (36.4-46.3); Red Blood Count 4.24 M/uL (4.2-5.4); White Blood Count 14.43 K/uL (4.8-10.8)
[2021-11-06] MEDS: DOCUSATE SODIUM 100 MG CAP PO SCH ×2 (08:54→20:04)
[2021-11-06] MEDS: PRENATAL VITAMIN 1 TAB PO SCH (08:54)
--- NOTE | 2021-11-07 07:39 | Obstetrical Progress Note ---
Date of Service <Ronaldo De Jesus MD - Last Filed: 11/07/21 09:03> November 07, 2021 Assessment & Plan <Ronaldo De Jesus MD - Last Filed: 11/07/21 09:03> (1) Encounter for care and examination after delivery: PPD 1: stable, routine management * patient voiding and ambulating without difficulty * pain well controlled on analgesia * tolerating regular diet * * anticipate d/c today * 6-week OB outpatient follow-up <Shahla Aguilar MD, FACOG - Last Filed: 11/07/21 09:34> (1) Encounter for care and examination after delivery: Subjective <Ronaldo De Jesus MD - Last Filed: 11/07/21 09:03> Odalis is a 36 y/o female who is now PPD 1 following spontaneous vaginal delivery at 38 weeks. Reports feeling well overall this morning. Minimal pain well managed on analgesics. Voiding well. Tolerating meals well and able to ambulate on her own. Bleeding has been minimal this morning. . Review of Systems Denies fever, chills, sweats Denies shortness of breath, difficulty breathing, chest pain, palpitations, chest pressure. Denies breast pain. Denies dysuria. Denies headache or changes in vision Physical Exam <Ronaldo De Jesus MD - Last Filed: 11/07/21 09:03> General: Alert, oriented. No acute distress. Cardiac: Regular rate and rhythm, no murmurs/rubs/gallops. Respiratory: Clear to auscultation bilaterally a/p, no wheezes/rales/rhonchi. No increased work of breathing. Symmetrical chest rise. No respiratory distress. Abdomen: Soft, nontender, nondistended. Bowel sounds present. Uterus: Uterine fundus firm, palpable at the level of umbilicus. Lower Extremities: No lower extremity edema or swelling. No deep calf pain. Jose J's negative bilaterally.. Results & Data ([facility]) <Ronaldo De Jesus MD - Last Filed: 11/07/21 09:03> Vital Signs (Past 12 Hours) Vital Signs Temp Pulse Resp BP 11/07/21 03:45 36.5 C 69 18 118/87 11/06/21 23:30 36.6 C 65 18 124/81 11/06/21 19:45 37.3 C 69 18 121/71 <Shahla Aguilar MD, FACOG - Last Filed: 11/07/21 09:34> Co-Signing Physician Notes Resident Physician Supervision Note: I interviewed and examined the patient. Discussed with Dr. De Jesus and agree with findings and plan as documented in the note. Any exceptions or clarifications are listed here: [None] Documented By: Shahla Aguilar MD, FACOG Resident Activity Tracking <Ronaldo De Jesus MD - Last Filed: 11/07/21 09:03> Resident Involvement: Resident Care Provided Care Provided: OB Delivery
[2021-11-07] MEDS: PRENATAL VITAMIN 1 TAB PO SCH (08:55)
[2021-11-07] MEDS: DOCUSATE SODIUM 100 MG CAP PO SCH (08:55)
== END 2021-11-07 12:35 | disposition home or self-care (01) | DRG 806 ==
LOC: OPB 04:59 → 4S1 05:08 → 4E2 08:16